=== PATIENT | female | born 2000 | race Caucasian/White ===

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

== ENCOUNTER 2023-11-21 13:21 | Emergency (ER) | payer BC ==
[~2023-11-21] VITALS: Ht 172.7 cm; Wt 64.9 kg
== END 2023-11-21 14:44 | disposition home or self-care (01) ==
LOC: ED 13:21
DX: B34.9 Viral infection, unspecified (principal); Z20.822 Contact with and (suspected) exposure to COVID-19

== ENCOUNTER 2024-03-22 16:54 | Emergency (ER) | payer BC ==
[~2024-03-22] VITALS: Ht 172.7 cm; Wt 65.8 kg
[2024-03-22] MEDS ORDERED: SODIUM CHLORIDE 0.9% 1,000 ML IV ONE (17:20)
[2024-03-22] MEDS ORDERED: Metoclopramide Hydrochloride 10 MG/2 ML AMP IV ONE (17:20)
[2024-03-22] MEDS ORDERED: diphenhydrAMINE hydrochloride 50 MG/ML VIAL IV ONE (17:20)
[2024-03-22] MEDS ORDERED: Ketorolac Tromethamine 30 MG/ML VIAL IV ONE (17:20)
== END 2024-03-22 19:54 | disposition left against medical advice (07) ==
LOC: ED 16:54
DX: G91.1 Obstructive hydrocephalus (principal); Z20.822 Contact with and (suspected) exposure to COVID-19; R22.0 Localized swelling, mass and lump, head; G43.909 Migraine, unspecified, not intractable, without status migrainosus; R11.2 Nausea with vomiting, unspecified; Z53.29 Procedure and treatment not carried out because of patient's decision for other reasons